=== PATIENT | female | born 1975 | race Hispanic/Latino ===

== ENCOUNTER 2025-07-12 01:06 | Inpatient (IN) | payer SELFPAY ==
[2025-07-12] MEDS ORDERED: Ondansetron PF 4 MG/2 ML Vial IVP PRN (01:41)
[2025-07-12] MEDS ORDERED: Dextrose 50% Abboject 50 ML SYRINGE SLOW IVP PRN (01:41)
[2025-07-12] MEDS ORDERED: Glucagon 1 MG/ML KIT IM PRN (01:41)
[2025-07-12 04:02] LABS: #Basophils Less than 0.03 10x3/uL (0.0-0.2); #Eosinophils 0.03 10x3/uL (0.0-0.7); #Monocytes 0.46 10x3/uL (0.11-0.59); #Neutrophils 5.14 10x3/uL (1.40-6.50); %Basophils 0.3 % (0.0-1.0); %Eosinophils 0.4 % (0.0-10.0); %Lymphocytes 18.7 % (21.0-51.0); %Monocytes 6.6 % (0.0-10.0); %Neutrophils 73.7 % (42.0-75.0); Hematocrit 33.1 % (36.0-47.0); Hemoglobin 10.9 g/dL (12.0-16.0); Mean Corpuscular Hemoglobin 30.8 pg (27.0-31.0); Mean Corpuscular Volume 93.5 fL (78.0-98.0); Platelet Count 277 10x3/uL (130-400); Red Blood Cell (RBC) Count 3.54 mill/uL (4.20-5.40); White Blood Cell (WBC) Count 6.97 10x3/uL (4.8-10.8)
[2025-07-12 04:34] LABS: Lipase 1753 U/L (8-78)
[2025-07-12 04:38] LABS: ALT (SGPT) 154 U/L (Less than 34); AST (SGOT) 143 U/L (11-34); Albumin 2.6 g/dL (3.1-4.5); Alkaline Phosphatase 1178 U/L (40-110); Anion Gap 10 mmol/L (10-20); BUN (Urea Nitrogen) 11 mg/dL (7.0-18.7); Bilirubin, Total 3.6 mg/dL (0.3-1.2); Calc. Creatinine Clearance 201 mL/min (70-130); Calcium 9.4 mg/dL (7.8-10.44); Carbon Dioxide 26 mmol/L (22-29); Cardiac Risk 7.5 (Less than 4.5); Chloride 102 mmol/L (98-107); Cholesterol 196 mg/dl (< 200 Desired); Globulin 4.8 g/dL (2.4-3.5); Glucose 333 mg/dL (70-105); HDL Cholesterol 26 mg/dL (>60 Neg Risk); LDL Cholesterol, Calculated 128 mg/dL; Magnesium 1.8 mg/dL (1.6-2.6); Potassium 3.5 mmol/L (3.5-5.1); Sodium 134 mmol/L (136-145); Triglycerides 212 mg/dL (Less than 150)
[2025-07-12] MEDS: Famotidine 20 MG TAB PO SCH (09:12)
[2025-07-12] MEDS: Ketorolac Tromethamine 30 MG (1 mL) VIAL IVP PRN (09:18)
[2025-07-12] MEDS: Famotidine/PF 20 mg/2ml Vial SLOW IVP SCH (09:55)
[2025-07-12] MEDS ORDERED: fentaNYL PF 100 MCG/2 ML SYRINGE ONE (12:17)
[2025-07-12] MEDS ORDERED: Rocuronium Bromide 10 MG/ML (10ML VIAL) ONE (12:17)
[2025-07-12] MEDS ORDERED: Lidocaine 2% PF 100 mg/5 ml Syringe ONE (12:17)
[2025-07-12] MEDS ORDERED: PHENYLEPHRINE-NS 100 MCG/ML 10 ML SYRINGE ONE (12:32)
[2025-07-12] MEDS ORDERED: PROPOFOL 200 MG/20 ML VIAL ONE (12:32)
[2025-07-12] MEDS ORDERED: SUGAMMADEX SODIUM 200 MG/2 ML VIAL ONE (13:08)
[2025-07-12] MEDS ORDERED: Ondansetron PF 4 MG/2 ML Vial ONE (13:08)
[2025-07-13 09:16] LABS: #Basophils Less than 0.03 10x3/uL (0.0-0.2); #Eosinophils 0.03 10x3/uL (0.0-0.7); #Monocytes 0.43 10x3/uL (0.11-0.59); #Neutrophils 5.55 10x3/uL (1.40-6.50); %Basophils 0.1 % (0.0-1.0); %Eosinophils 0.4 % (0.0-10.0); %Lymphocytes 19.3 % (21.0-51.0); %Monocytes 5.7 % (0.0-10.0); %Neutrophils 74.1 % (42.0-75.0); Hematocrit 35.6 % (36.0-47.0); Hemoglobin 11.6 g/dL (12.0-16.0); Mean Corpuscular Hemoglobin 31.1 pg (27.0-31.0); Mean Corpuscular Volume 95.4 fL (78.0-98.0); Platelet Count 300 10x3/uL (130-400); Red Blood Cell (RBC) Count 3.73 mill/uL (4.20-5.40); White Blood Cell (WBC) Count 7.50 10x3/uL (4.8-10.8)
[2025-07-13 09:26] LABS: ALT (SGPT) 86 U/L (Less than 34); AST (SGOT) 40 U/L (11-34); Albumin 2.7 g/dL (3.1-4.5); Alkaline Phosphatase 840 U/L (40-110); Anion Gap 15 mmol/L (10-20); BUN (Urea Nitrogen) 8 mg/dL (7.0-18.7); Bilirubin, Total 1.7 mg/dL (0.3-1.2); Calc. Creatinine Clearance 233 mL/min (70-130); Calcium 9.0 mg/dL (7.8-10.44); Carbon Dioxide 24 mmol/L (22-29); Chloride 100 mmol/L (98-107); Globulin 4.2 g/dL (2.4-3.5); Glucose 164 mg/dL (70-105); Potassium 3.3 mmol/L (3.5-5.1); Sodium 136 mmol/L (136-145)
[2025-07-13 14:30] LABS: INR-International Normal Ratio 1.2; PTT 34.6 sec (22.9-36.1); Prothrombin Time 15.0 sec (12.0-14.7)
[2025-07-13 20:29] LABS: BF Segmented Neutrophils 94 %; Cell Count Non Hematic 4 %
[2025-07-13 21:13] VITALS: BMI 29.2
[2025-07-13] MEDS: Ketorolac Tromethamine 30 MG (1 mL) VIAL IVP PRN (22:26)
[2025-07-14 05:13] LABS: #Basophils Less than 0.03 10x3/uL (0.0-0.2); #Eosinophils 0.05 10x3/uL (0.0-0.7); #Monocytes 0.62 10x3/uL (0.11-0.59); #Neutrophils 5.18 10x3/uL (1.40-6.50); %Basophils 0.3 % (0.0-1.0); %Eosinophils 0.6 % (0.0-10.0); %Lymphocytes 24.6 % (21.0-51.0); %Monocytes 7.9 % (0.0-10.0); %Neutrophils 66.3 % (42.0-75.0); Hematocrit 31.9 % (36.0-47.0); Hemoglobin 10.3 g/dL (12.0-16.0); Mean Corpuscular Hemoglobin 30.6 pg (27.0-31.0); Mean Corpuscular Volume 94.7 fL (78.0-98.0); Platelet Count 313 10x3/uL (130-400); Red Blood Cell (RBC) Count 3.37 mill/uL (4.20-5.40); White Blood Cell (WBC) Count 7.81 10x3/uL (4.8-10.8)
[2025-07-14 05:27] LABS: ALT (SGPT) 57 U/L (Less than 34); AST (SGOT) 22 U/L (11-34); Albumin 2.4 g/dL (3.1-4.5); Alkaline Phosphatase 669 U/L (40-110); Anion Gap 11 mmol/L (10-20); BUN (Urea Nitrogen) 8 mg/dL (7.0-18.7); BUN/Creatinine Ratio 21.05; Bilirubin, Total 1.3 mg/dL (0.3-1.2); Calc. Creatinine Clearance 240 mL/min (70-130); Calcium 8.9 mg/dL (7.8-10.44); Carbon Dioxide 26 mmol/L (22-29); Chloride 104 mmol/L (98-107); Globulin 3.9 g/dL (2.4-3.5); Glucose 100 mg/dL (70-105); Potassium 3.1 mmol/L (3.5-5.1); Sodium 138 mmol/L (136-145)
[2025-07-15] MEDS: Ketorolac Tromethamine 30 MG (1 mL) VIAL IVP PRN (01:01)
[2025-07-15 05:35] LABS: #Basophils Less than 0.03 10x3/uL (0.0-0.2); #Eosinophils 0.07 10x3/uL (0.0-0.7); #Monocytes 0.66 10x3/uL (0.11-0.59); #Neutrophils 5.37 10x3/uL (1.40-6.50); %Basophils 0.1 % (0.0-1.0); %Eosinophils 0.9 % (0.0-10.0); %Lymphocytes 24.0 % (21.0-51.0); %Monocytes 8.2 % (0.0-10.0); %Neutrophils 66.4 % (42.0-75.0); Hematocrit 32.4 % (36.0-47.0); Hemoglobin 10.6 g/dL (12.0-16.0); Mean Corpuscular Hemoglobin 30.8 pg (27.0-31.0); Mean Corpuscular Volume 94.2 fL (78.0-98.0); Platelet Count 349 10x3/uL (130-400); Red Blood Cell (RBC) Count 3.44 mill/uL (4.20-5.40); White Blood Cell (WBC) Count 8.08 10x3/uL (4.8-10.8)
[2025-07-15 05:50] LABS: ALT (SGPT) 43 U/L (Less than 34); AST (SGOT) 24 U/L (11-34); Albumin 2.6 g/dL (3.1-4.5); Alkaline Phosphatase 575 U/L (40-110); Anion Gap 11 mmol/L (10-20); BUN (Urea Nitrogen) 6 mg/dL (7.0-18.7); BUN/Creatinine Ratio 14.63; Bilirubin, Total 1.6 mg/dL (0.3-1.2); Calc. Creatinine Clearance 222 mL/min (70-130); Calcium 9.3 mg/dL (7.8-10.44); Carbon Dioxide 27 mmol/L (22-29); Chloride 105 mmol/L (98-107); Globulin 4.3 g/dL (2.4-3.5); Glucose 111 mg/dL (70-105); Potassium 3.8 mmol/L (3.5-5.1); Sodium 139 mmol/L (136-145)
[2025-07-16] MEDS: FLU (Fluarix Triv) 25-26 (6MOS UP)/PF 45 MCG/0.5 ML Syringe IM ONE (00:14)
[2025-07-16 05:44] LABS: White Blood Cell (WBC) Count 6.42 10x3/uL (4.8-10.8)
[2025-07-16 05:45] LABS: #Basophils Less than 0.03 10x3/uL (0.0-0.2); #Eosinophils 0.08 10x3/uL (0.0-0.7); #Monocytes 0.63 10x3/uL (0.11-0.59); #Neutrophils 3.54 10x3/uL (1.40-6.50); %Basophils 0.3 % (0.0-1.0); %Eosinophils 1.2 % (0.0-10.0); %Lymphocytes 33.2 % (21.0-51.0); %Monocytes 9.8 % (0.0-10.0); %Neutrophils 55.2 % (42.0-75.0); Hematocrit 33.0 % (36.0-47.0); Hemoglobin 10.6 g/dL (12.0-16.0); Mean Corpuscular Hemoglobin 30.4 pg (27.0-31.0); Mean Corpuscular Volume 94.6 fL (78.0-98.0); Platelet Count 355 10x3/uL (130-400); Red Blood Cell (RBC) Count 3.49 mill/uL (4.20-5.40)
[2025-07-16 05:59] LABS: ALT (SGPT) 34 U/L (Less than 34); AST (SGOT) 23 U/L (11-34); Albumin 2.5 g/dL (3.1-4.5); Alkaline Phosphatase 504 U/L (40-110); Anion Gap 14 mmol/L (10-20); BUN (Urea Nitrogen) 7 mg/dL (7.0-18.7); BUN/Creatinine Ratio 16.67; Bilirubin, Total 1.4 mg/dL (0.3-1.2); Calc. Creatinine Clearance 217 mL/min (70-130); Calcium 9.1 mg/dL (7.8-10.44); Carbon Dioxide 25 mmol/L (22-29); Chloride 105 mmol/L (98-107); Globulin 4.3 g/dL (2.4-3.5); Glucose 115 mg/dL (70-105); Potassium 3.8 mmol/L (3.5-5.1); Sodium 140 mmol/L (136-145)
[2025-07-17 05:22] LABS: ALT (SGPT) 30 U/L (Less than 34); AST (SGOT) 22 U/L (11-34); Albumin 2.6 g/dL (3.1-4.5); Alkaline Phosphatase 475 U/L (40-110); Anion Gap 14 mmol/L (10-20); BUN (Urea Nitrogen) 9 mg/dL (7.0-18.7); Bilirubin, Total 1.1 mg/dL (0.3-1.2); Calc. Creatinine Clearance 222 mL/min (70-130); Calcium 9.2 mg/dL (7.8-10.44); Carbon Dioxide 25 mmol/L (22-29); Chloride 105 mmol/L (98-107); Globulin 4.3 g/dL (2.4-3.5); Glucose 147 mg/dL (70-105); Lipase 24 U/L (8-78); Potassium 3.7 mmol/L (3.5-5.1); Sodium 140 mmol/L (136-145)
[2025-07-17 12:01] VITALS: BP 146/91; TEMP 97.9
== END 2025-07-17 12:47 | disposition home or self-care (01) | DRG 444 ==
LOC: 2NO 01:06 → SURG A 07-13 21:05
PROVIDERS: ADMIT Student in an Organized Health Care Education/Training Program; ATTEND Family Medicine
PROC: 0FC98ZZ Extirpation of Matter from Common Bile Duct, Via Natural or Artificial Opening Endoscopic (ICD-10-PCS; principal; 2025-07-12)
DX: K80.40 Calculus of bile duct with cholecystitis, unspecified, without obstruction (principal); K85.10 Biliary acute pancreatitis without necrosis or infection; N15.1 Renal and perinephric abscess; K80.10 Calculus of gallbladder with chronic cholecystitis without obstruction; N12 Tubulo-interstitial nephritis, not specified as acute or chronic; E11.65 Type 2 diabetes mellitus with hyperglycemia; E80.6 Other disorders of bilirubin metabolism; R74.01 Elevation of levels of liver transaminase levels; Z79.899 Other long term (current) drug therapy
CPT/HCPCS: 36415; 36416; 49406; 74330; 77012; 80053; 80061; 80069; 83036; 83605; 83690; 83735; 84443; 85025; 85060; 85610; 85730; 87070; 87077; 87086; 87186; 87205; 89051; 93005; 93010; C1725; C1729; J1308; J1815; J1885; J2003; J2060; J2185; J2250; J2405; J2704; J3010; J7120; P9045; Q9967